=== PATIENT | female | born 1970 | race Caucasian/White ===

== ENCOUNTER 2019-02-04 16:39 | Inpatient (IN) | payer MEDICAID ==
[~2019-02-04] VITALS: Ht 172.7 cm; Wt 176.1 kg
[~2019-02-04 16:39] MED LIST: CYCL-1 PO; FLUC200T PO; HYDR-4383 PO; METO50TA17 PO; PHEN-786 PO
[2019-02-04 17:17] LABS: BASOPHILS # (AUTO) 0.1 X10'3 (0-0.2); BASOPHILS % (AUTO) 0.9 % (0-1); EOSINOPHILS # (AUTO) 0.1 X10'3 (0-0.9); EOSINOPHILS % (AUTO) 1.2 % (0-6); HEMATOCRIT 42.6 % (35.0-45.0); HEMOGLOBIN 14.2 g/dl (12.0-16.0); LYMPHOCYTES # (AUTO) 2.4 X10'3 (1.1-4.8); LYMPHOCYTES % (AUTO) 30.6 % (21-51); MEAN CORPUSCULAR HEMOGLOBIN 29.5 PG (27.0-31.0); MEAN CORPUSCULAR HGB CONC 33.3 g/dL (33.0-36.5); MEAN CORPUSCULAR VOLUME 88.4 FL (78-98); MEAN PLATELET VOLUME 8.2 FL (7.4-10.4); MONOCYTES # (AUTO) 0.5 X10'3 (0-0.9); MONOCYTES % (AUTO) 6.2 % (2-12); NEUTROPHILS # (AUTO) 4.8 X10'3 (1.8-7.7); NEUTROPHILS % (AUTO) 61.1 % (42-75); PLATELET COUNT 322 X10'3 (140-440); RED BLOOD COUNT 4.82 X10'6 (4.20-5.60); RED CELL DISTRIBUTION WIDTH 12.9 % (11.5-14.5); WHITE BLOOD COUNT 7.8 X10'3 (4.5-11.0)
[2019-02-04 17:33] LABS: ALANINE AMINOTRANSFERASE 18 U/L (12-78); ALBUMIN 3.5 G/DL (3.4-5.0); ALBUMIN/GLOBULIN RATIO 0.9 (1.1-1.5); ALKALINE PHOSPHATASE 101 IU/L (46-116); ANION GAP 8 (8-16); ASPARTATE AMINO TRANSFERASE 14 U/L (10-37); BILIRUBIN,TOTAL 0.3 MG/DL (0.1-1.0); BLOOD UREA NITROGEN 12 MG/DL (7-18); BUN/CREATININE RATIO 14.1 (6.6-38.0); CALCIUM 8.7 MG/DL (8.5-10.1); CHLORIDE 101 MMOL/L (99-107); CREATININE 0.85 MG/DL (0.40-0.90); GLUCOSE 102 MG/DL (70-104); POTASSIUM 4.4 MMOL/L (3.5-5.1); SODIUM 136 MMOL/L (135-145); TOTAL CARBON DIOXIDE 26.6 MMOL/L (24-32); TOTAL PROTEIN 7.5 G/DL (6.4-8.2); eGFR 71 ML/MIN
[2019-02-04 17:40] LABS: PARTIAL THROMBOPLASTIN TIME 29 SECONDS (22-32)
[2019-02-04] MEDS ORDERED: mag hydrox/Alum hydrox/simeth 30ml oral suspension PO PRN (18:20)
[2019-02-04] MEDS ORDERED: ondansetron/PF 4mg/2ml inj IV PRN (18:20)
[2019-02-04] MEDS ORDERED: heparin 10,000 units/1 ML INJ IV ONE (18:20)
[2019-02-04] MEDS ORDERED: acetaminophen 325mg tablet PO PRN ×2 (18:20)
[2019-02-04] MEDS ORDERED: heparin 10,000 units/1 ML INJ IV PRN (18:20)
[2019-02-04] MEDS ORDERED: magnesium hydroxide 30ml (MOM) UD suspension PO PRN (18:20)
[2019-02-04] MEDS ORDERED: nitroGLYCERIN 0.4mg SUBLingual tab SL PRN (18:20)
[2019-02-04] MEDS ORDERED: HYDROcodone/acetaminophen 10/325mg tab PO PRN (18:20)
[2019-02-04] MEDS ORDERED: morphine 2 MG/ML inj. syringe IV PRN (18:20)
[2019-02-04] MEDS ORDERED: ACYC-202 PO (18:47)
[2019-02-04] MEDS ORDERED: CETI10CA PO (18:51)
[2019-02-04] MEDS ORDERED: BROM2.5T22 PO (18:51)
[2019-02-04] MEDS ORDERED: ASPI-1265 PO (18:51)
[2019-02-04] MEDS ORDERED: AMIT-189 PO (18:51)
[2019-02-04] MEDS ORDERED: ADV50250 INH (19:01)
[2019-02-04] MEDS ORDERED: CHOL10002 PO (19:01)
[2019-02-04] MEDS ORDERED: ESTR2TAB PO (19:01)
[2019-02-04] MEDS ORDERED: FOLI0.4T2 PO (19:01)
[2019-02-04] MEDS ORDERED: MONT10TA24 PO (19:01)
[2019-02-04] MEDS ORDERED: VALS160T30 PO (19:01)
[2019-02-04] MEDS ORDERED: OXCA600T9 PO (19:01)
[2019-02-04] MEDS ORDERED: OMEP40CA13 PO (19:01)
[2019-02-04] MEDS ORDERED: FLUT16SP2 BOTHNARES (19:11)
[2019-02-04] MEDS ORDERED: ALBU0.63 NEB (19:11)
[2019-02-04] MEDS ORDERED: ALBU6.7H9 INH (19:11)
[2019-02-04] MEDS ORDERED: COMPOUND (19:11)
[2019-02-04] MEDS: heparin 25,000 UNIT/250ml bag 250 ML IV SCH (19:25)
[2019-02-04] MEDS ORDERED: metoprolol tartrate 25mg tablet PO SCH (20:00)
[2019-02-04] MEDS: HYDROcodone/acetaminophen 5mg/325mg tablet PO PRN (21:41)
[2019-02-04 23:00] VITALS: BP 189/101
[2019-02-04] MEDS: nitroGLYCERIN 0.4mg/hour patch TD SCH (23:21)
[2019-02-05] VITALS (30 sets, daily range): BP systolic 143–214; BP diastolic 49–170
[2019-02-05] MEDS ORDERED: cyclobenzaprine 10mg tablet PO PRN
[2019-02-05] MEDS ORDERED: cloNIDine 0.1 mg tablet PO ONE (00:05)
[2019-02-05] MEDS ORDERED: albuterol 2.5 MG/3 ML nebule NEB PRN (01:55)
[2019-02-05] MEDS ORDERED: non-formulary drug (Albuterol Sulfate (Proventil Hfa) 2 PUFFS) INH SCH (02:00)
[2019-02-05 03:01] LABS: BASOPHILS # (AUTO) 0.1 X10'3 (0-0.2); EOSINOPHILS # (AUTO) 0.1 X10'3 (0-0.9); HEMATOCRIT 40.1 % (35.0-45.0); HEMOGLOBIN 13.7 g/dl (12.0-16.0); LYMPHOCYTES # (AUTO) 3.4 X10'3 (1.1-4.8); LYMPHOCYTES % (AUTO) 37.9 % (21-51); MEAN CORPUSCULAR VOLUME 88.2 FL (78-98); MEAN PLATELET VOLUME 8.4 FL (7.4-10.4); MONOCYTES # (AUTO) 0.6 X10'3 (0-0.9); MONOCYTES % (AUTO) 6.7 % (2-12); NEUTROPHILS # (AUTO) 4.8 X10'3 (1.8-7.7); NEUTROPHILS % (AUTO) 53.4 % (42-75); PLATELET COUNT 283 X10'3 (140-440); RED BLOOD COUNT 4.55 X10'6 (4.20-5.60); WHITE BLOOD COUNT 9.1 X10'3 (4.5-11.0)
[2019-02-05] MEDS: heparin 25,000 UNIT/250ml bag 250 ML IV SCH (03:35)
[2019-02-05] MEDS: HYDROcodone/acetaminophen 5mg/325mg tablet PO PRN (05:31)
[2019-02-05 05:51] LABS: ALBUMIN 3.3 G/DL (3.4-5.0); ANION GAP 9 (8-16); BLOOD UREA NITROGEN 9 MG/DL (7-18); BUN/CREATININE RATIO 13.8 (6.6-38.0); CALCIUM 8.6 MG/DL (8.5-10.1); CHLORIDE 103 MMOL/L (99-107); CHOL/HDL RATIO 4.7 (0.00-4.99); CHOLESTEROL 239 MG/DL (0-200); CREATININE 0.65 MG/DL (0.40-0.90); GLUCOSE 107 MG/DL (70-104); HDL CHOLESTEROL 51 MG/DL (35-60); LDL CHOLESTEROL 139 MG/DL (50-100); POTASSIUM 3.6 MMOL/L (3.5-5.1); SODIUM 137 MMOL/L (135-145); TOTAL CARBON DIOXIDE 24.7 MMOL/L (24-32); TRIGLYCERIDES 214 MG/DL (20-135); eGFR > 90 ML/MIN
--- NOTE | 2019-02-05 06:24 | NUR ---
CALLED DR. SERRANO ABOUT HIGH BP 193/94 RECEIVED ORDER FOR 0.2MG CLONIDINE PO ONCE NOW.
[2019-02-05] MEDS ORDERED: nystatin 15 GM powder TP PRN (06:45)
[2019-02-05] MEDS: cloNIDine 0.1 mg tablet PO SCH (06:47)
--- NOTE | 2019-02-05 07:44 | NUR ---
PAGER ID: [phone] MESSAGE: [phone]. Valencia Selby. Wanted to ensure you were aware latest trop 10.16. currently on heparin gtt at 1700 and having active CP. unrelieved by nitro patch. morphine given. EKG done. BP 180/92 please advise. Cesar ASCENCIO ext [phone]
[2019-02-05] MEDS: vitamin D (cholecalciferol) 1,000 unit tablet PO SCH (07:46)
[2019-02-05] MEDS: fluticasone nasal spray 16GM bottle NS SCH (07:46)
[2019-02-05] MEDS: pantoprazole 40mg Tablet.DR PO SCH (07:47)
[2019-02-05] MEDS: folic acid 0.4mg tablet PO SCH (07:47)
[2019-02-05] MEDS: oxcarbazepine 150mg tablet PO SCH ×2 (07:47→19:41)
[2019-02-05] MEDS: estradiol 1mg tablet PO SCH (07:48)
[2019-02-05] MEDS: aspirin 81mg tablet.DR PO SCH (07:48)
[2019-02-05] MEDS ORDERED: nitroGLYCERIN-Tridil 50MG/D5W 250 ML IV SCH ×2 (07:55)
[2019-02-05] MEDS ORDERED: atorvastatin 10mg tablet PO SCH (08:00)
[2019-02-05] MEDS: Fluticasone/Salmeterol (Advair 250-50 Diskus) IH SCH ×2 (08:00→22:55)
[2019-02-05] MEDS: VALSARTAN 320 MG PO SCH (08:00)
[2019-02-05] MEDS ORDERED: aspirin 81mg tab.chew PO SCH (08:00)
--- NOTE | 2019-02-05 08:20 | NUR ---
PAGED PICC LINE NURSE "IF YOU CAN PLEASE HELP WITH IV OR EXTENDED IN ROOM 309, PT ON 2 DRIPS AND REQUESTED THANK YOU, PANCHO MYLES [phone]"
[2019-02-05] MEDS ORDERED: tirofiban 5mg in NS 100mL 100 ML IV SCH (08:30)
--- NOTE | 2019-02-05 09:45 | NUR ---
PAGER ID: [phone] MESSAGE: rm [phone] Valencia Selby. just to clarify, would you and Dr. Balderas like all three gtts running. Heparin, aggrastat and nitro? thank you Cesar ASCENCIO ext [phone]
[2019-02-05] MEDS ORDERED: tirofiban 12.5mg in NS 250mL 250 ML IV SCH (10:15)
[2019-02-05] MEDS: LORazepam 1 MG tablet PO PRN ×2 (11:03→18:44)
[2019-02-05] MEDS ORDERED: nitroGLYCERIN-Tridil 50MG/D5W 250 ML IV ONE (14:03)
[2019-02-05] MEDS ORDERED: midazolam 2 mg/2 ml injection ONE ×2 (14:03→15:13)
[2019-02-05] MEDS ORDERED: verapamil 2.5 mg/ml inj IV ONE (14:03)
[2019-02-05] MEDS ORDERED: fentaNYL/PF 50MCG/1 ML 2ML syringe ONE (14:03)
[2019-02-05] MEDS ORDERED: iohexol 350MG/ML 100ml bottle IV ONE (14:04)
[2019-02-05] MEDS ORDERED: LIDOcaine 1% (10mg/ml)w/preservative injection 20ml MDV ONE (14:04)
[2019-02-05] MEDS ORDERED: heparin 1,000unit/ml 10ml vial 10 ML ONE ×2 (14:04→15:08)
--- NOTE | 2019-02-05 14:35 | NUR ---
pt to laboratory technical specialist.
[2019-02-05] MEDS ORDERED: iohexol 350 MG/ML 50ML vial IV ONE (15:06)
[2019-02-05] MEDS ORDERED: ticagrelor 90mg tablet ONE (15:22)
--- NOTE | 2019-02-05 16:00 | NUR ---
patient hypertensive post cath paged Dr. Rico "ACCE pt [place] 309 came back from denture laboratory technician. Very hypertensive throughout the procedure. Current at 191/81, 76. Nitro Gtt was d/c by Dr. Balderas. Do you want to prescribe any PRN BP meds? Thx. Ex [id number]"
[2019-02-05] MEDS ORDERED: ondansetron/PF 4mg/2ml inj IV PRN (16:20)
[2019-02-05] MEDS ORDERED: hydrALAZINE 20mg/ml inj. IV ONE (16:20)
[2019-02-05] MEDS ORDERED: normal saline 1000ml 1,000 ML IV SCH (16:25)
[2019-02-05] MEDS ORDERED: OXAZEpam 15mg capsule PO PRN (16:25)
[2019-02-05] MEDS ORDERED: proCHLORperazine 10 MG/2 ml inj IV PRN (16:25)
--- NOTE | 2019-02-05 16:55 | NUR ---
3 CC OF AIR RELEASED FROM RADIAL COMPRESSION
--- NOTE | 2019-02-05 17:10 | NUR ---
DR. HOGUE CALLED BACK TO GIVE ORDER FOR HYDRALAZINE IV 20MG ONCE. INSTRUCTED TO CONTACT HOSPITALIST FOR BP ISSUES.
[2019-02-05] MEDS: morphine 2 MG/ML inj. syringe IV PRN (17:22)
--- NOTE | 2019-02-05 17:35 | NUR ---
DR. RUBIO PRESENT AT BEDSIDE AND AWARE OF ELEVATED BP
--- NOTE | 2019-02-05 17:53 | NUR ---
Paged Dr. Huerta: ACCE pt in 309 [facility], BP is 204/114. Gave Hydralyzine 20mg, gave morphine 2 mg for pain. Can you prescribe PRN BP meds? Can pt also be straight cathed for urinary retention per pt request? Thx
--- NOTE | 2019-02-05 18:13 | NUR ---
Problems reprioritized. Patient report given, questions answered & plan of care reviewed with Demi ASCENCIO.
--- NOTE | 2019-02-05 18:41 | NUR ---
PAGER ID: [phone] MESSAGE: 309 pt Bal on review BP has been trending high, currently 190/70 with no PRN anti-HTN. Scheduled BP meds present. Please advise. Thank you - Leslee [phone]
[2019-02-05] MEDS ORDERED: hydrALAZINE 20mg/ml inj. IV PRN (18:45)
[2019-02-05] MEDS: ticagrelor 90mg tablet PO SCH (19:41)
[2019-02-05] MEDS ORDERED: montelukast 10mg tablet PO SCH (21:00)
[2019-02-05] MEDS ORDERED: amitriptyline 10mg tablet PO SCH (21:00)
[2019-02-05] MEDS: diltiazem 30mg tablet PO SCH (21:45)
[2019-02-06] MEDS: morphine 2 MG/ML inj. syringe IV PRN (00:10)
[2019-02-06] MEDS: nitroGLYCERIN 0.4mg/hour patch TD SCH (00:15)
[2019-02-06 00:30] VITALS: BP 176/44
[2019-02-06 02:00] VITALS: BP 152/55
[2019-02-06] MEDS: diltiazem 30mg tablet PO SCH ×3 (02:42→15:04)
[2019-02-06 06:00] VITALS: BP 144/60
--- NOTE | 2019-02-06 06:00 | NUR ---
Patient in room MED 309. I have received report from SONU Simms and had the opportunity to ask questions and assume patient care.
--- NOTE | 2019-02-06 06:22 | NUR ---
Problems reprioritized. Patient report given, questions answered & plan of care reviewed with Art RN.
[2019-02-06 06:23] LABS: BASOPHILS % (AUTO) 0.4 % (0-1); EOSINOPHILS % (AUTO) 0.3 % (0-6); HEMOGLOBIN 13.3 g/dl (12.0-16.0); LYMPHOCYTES # (AUTO) 1.3 X10'3 (1.1-4.8); LYMPHOCYTES % (AUTO) 11.6 % (21-51); MEAN CORPUSCULAR HEMOGLOBIN 29.9 PG (27.0-31.0); MEAN CORPUSCULAR HGB CONC 33.9 g/dL (33.0-36.5); MEAN CORPUSCULAR VOLUME 88.1 FL (78-98); MEAN PLATELET VOLUME 8.1 FL (7.4-10.4); MONOCYTES # (AUTO) 0.7 X10'3 (0-0.9); MONOCYTES % (AUTO) 6.2 % (2-12); NEUTROPHILS # (AUTO) 9.2 X10'3 (1.8-7.7); NEUTROPHILS % (AUTO) 81.5 % (42-75); PLATELET COUNT 297 X10'3 (140-440); RED BLOOD COUNT 4.43 X10'6 (4.20-5.60); RED CELL DISTRIBUTION WIDTH 13.1 % (11.5-14.5); WHITE BLOOD COUNT 11.3 X10'3 (4.5-11.0)
[2019-02-06] MEDS: cloNIDine 0.1 mg tablet PO SCH (06:25)
[2019-02-06 06:34] LABS: ALBUMIN 3.1 G/DL (3.4-5.0); ANION GAP 10 (8-16); BLOOD UREA NITROGEN 9 MG/DL (7-18); CALCIUM 8.9 MG/DL (8.5-10.1); CHLORIDE 102 MMOL/L (99-107); CREATININE 0.82 MG/DL (0.40-0.90); GLUCOSE 130 MG/DL (70-104); POTASSIUM 3.9 MMOL/L (3.5-5.1); SODIUM 137 MMOL/L (135-145); TOTAL CARBON DIOXIDE 25.3 MMOL/L (24-32); eGFR 74 ML/MIN
--- NOTE | 2019-02-06 06:47 | NUR ---
PAGER ID: [phone] MESSAGE: GOOD MORNING DR. KIRK BERTRAND 309 HAS AN ORDER FOR CATAPRES TAKE APPREARS TO BE A 1 TIME ORDER. IS IT SUPPOSED TO BE A ROUTINE MED? SONU GRACIA EXT [id number]
[2019-02-06] MEDS: pantoprazole 40mg Tablet.DR PO SCH (07:51)
[2019-02-06] MEDS: aspirin 81mg tablet.DR PO SCH (07:51)
[2019-02-06] MEDS: vitamin D (cholecalciferol) 1,000 unit tablet PO SCH (07:51)
[2019-02-06] MEDS: folic acid 0.4mg tablet PO SCH (07:52)
[2019-02-06] MEDS: estradiol 1mg tablet PO SCH (07:52)
[2019-02-06] MEDS: ticagrelor 90mg tablet PO SCH (07:52)
[2019-02-06] MEDS: oxcarbazepine 150mg tablet PO SCH (07:53)
[2019-02-06] MEDS: VALSARTAN 320 MG PO SCH (07:54)
[2019-02-06] MEDS: fluticasone nasal spray 16GM bottle NS SCH (07:54)
[2019-02-06] MEDS ORDERED: atorvastatin 20mg tablet PO SCH (08:00)
[2019-02-06] MEDS: Fluticasone/Salmeterol (Advair 250-50 Diskus) IH SCH (08:00)
[2019-02-06 08:07] LABS: MAGNESIUM 1.8 MG/DL (1.5-2.4)
--- NOTE | 2019-02-06 10:10 | NUR ---
Orientee documentation: I have reviewed and agree with all interventions, assessments performed and documented by SONU Celis.
[2019-02-06] MEDS: HYDROcodone/acetaminophen 5mg/325mg tablet PO PRN (10:19)
--- NOTE | 2019-02-06 10:56 | NUR ---
PAGER ID: [phone] MESSAGE: Good morning DrCole Ugaldewer in 308 has a blood pressure of 74/49 with a map of 55. He is complaining of dizziness (but this is not new). In the past he has used midodrine.. Is this something we should consider? Art, [phone] Addendum: 02/06/19 at 1056 by Vineet Lua III, RN Previous note is for a different pt
[2019-02-06 11:00] VITALS: BP 156/60
--- NOTE | 2019-02-06 13:41 | NUR ---
Orientee documentation: I have reviewed and agree with all interventions, assessments performed and documented by SONU Celis.
--- NOTE | 2019-02-06 13:53 | NUR ---
Problems reprioritized. Patient report given, questions answered & plan of care reviewed with SONU ONEAL.
[2019-02-06 14:30] VITALS: BP 136/89
[2019-02-06 15:00] VITALS: BP 132/85
[2019-02-06] MEDS ORDERED: NITR0.4T51 SL (15:32)
[2019-02-06] MEDS ORDERED: DILT60TA4 PO (15:32)
[2019-02-06] MEDS ORDERED: ATOR80TA PO (15:32)
[2019-02-06] MEDS ORDERED: TICA90TA PO (15:37)
--- NOTE | 2019-02-06 17:45 | NUR ---
Pt discharged. IV and tele DC'd. Educated on medications, follow-up and NSTEMI. Stable per MD for DC.
[2019-02-06] MEDS ORDERED: cetirizine 10mg tablet PO SCH (21:00)
== END 2019-02-06 17:45 | disposition home or self-care (01) | DRG 174 ==
LOC: ER 16:39 → MED 3N 20:42 → CMPBEDREQ 21:13 → PCU 3S 02-06 15:20
PROVIDERS: ADMIT Internal Medicine; ATTEND Family Medicine
PROC: 027034Z Dilation of Coronary Artery, One Artery with Drug-eluting Intraluminal Device, Percutaneous Approach (ICD-10-PCS; principal; 2019-02-05)
DX: I21.4 Non-ST elevation (NSTEMI) myocardial infarction (principal); E66.01 Morbid (severe) obesity due to excess calories; G47.00 Insomnia, unspecified; J45.909 Unspecified asthma, uncomplicated; K21.9 Gastro-esophageal reflux disease without esophagitis; I25.10 Atherosclerotic heart disease of native coronary artery without angina pectoris; E28.2 Polycystic ovarian syndrome; G89.29 Other chronic pain; E78.5 Hyperlipidemia, unspecified; I10 Essential (primary) hypertension; M54.9 Dorsalgia, unspecified; Z90.710 Acquired absence of both cervix and uterus; Z90.49 Acquired absence of other specified parts of digestive tract; Z88.8 Allergy status to other drugs, medicaments and biological substances; Z82.49 Family history of ischemic heart disease and other diseases of the circulatory system; Z68.43 Body mass index [BMI] 50.0-59.9, adult; Z85.3 Personal history of malignant neoplasm of breast; Z87.440 Personal history of urinary (tract) infections
CPT/HCPCS: 36415; 71045; 76937; 80048; 80053; 80061; 83036; 83735; 83880; 84484; 85025; 85610; 85730; 87081; 93005; 93306; 93454; 94640; 94760; 96374; 99152; 99153; 99285; A4620; C1769; C1874; C1894; C9600; G0378; J0360; J1644; J2001; J2250; J2270; J2405; J3010; J3246; J3490; J7030; Q9967

== ENCOUNTER 2019-02-09 15:01 | Emergency (ER) | payer MEDICAID ==
[~2019-02-09] VITALS: Ht 172.7 cm; Wt 177.3 kg
[~2019-02-09 15:01] MED LIST changes: +ACYC-202 PO; +ADV50250 INH; +ALBU0.63 NEB; +ALBU6.7H9 INH; +AMIT-189 PO; +ASPI-1265 PO; +ATOR80TA PO; +BROM2.5T22 PO; +CETI10CA PO; +CHOL10002 PO; +COMPOUND; +DILT60TA4 PO; +ESTR2TAB PO; -FLUC200T PO; +FLUT16SP2 BOTHNARES; +FOLI0.4T2 PO; -HYDR-4383 PO; -METO50TA17 PO; +MONT10TA24 PO; +NITR0.4T51 SL; +OMEP40CA13 PO; +OXCA600T9 PO; -PHEN-786 PO; +TICA90TA PO; +VALS160T30 PO
[2019-02-09 16:18] LABS: BASOPHILS % (AUTO) 0.4 % (0-1); EOSINOPHILS # (AUTO) 0.2 X10'3 (0-0.9); EOSINOPHILS % (AUTO) 1.9 % (0-6); HEMATOCRIT 41.1 % (35.0-45.0); HEMOGLOBIN 13.9 g/dl (12.0-16.0); LYMPHOCYTES # (AUTO) 2.2 X10'3 (1.1-4.8); LYMPHOCYTES % (AUTO) 23.6 % (21-51); MEAN CORPUSCULAR HEMOGLOBIN 29.8 PG (27.0-31.0); MEAN CORPUSCULAR HGB CONC 33.7 g/dL (33.0-36.5); MEAN CORPUSCULAR VOLUME 88.3 FL (78-98); MONOCYTES # (AUTO) 0.7 X10'3 (0-0.9); MONOCYTES % (AUTO) 7.8 % (2-12); NEUTROPHILS # (AUTO) 6.2 X10'3 (1.8-7.7); NEUTROPHILS % (AUTO) 66.3 % (42-75); PLATELET COUNT 347 X10'3 (140-440); RED BLOOD COUNT 4.65 X10'6 (4.20-5.60); RED CELL DISTRIBUTION WIDTH 12.8 % (11.5-14.5); WHITE BLOOD COUNT 9.3 X10'3 (4.5-11.0)
[2019-02-09] MEDS ORDERED: iohexol 350MG/ML 100ml bottle IV ONE (16:31)
[2019-02-09 16:35] LABS: ALANINE AMINOTRANSFERASE 13 U/L (12-78); ALBUMIN 3.2 G/DL (3.4-5.0); ALBUMIN/GLOBULIN RATIO 0.7 (1.1-1.5); ALKALINE PHOSPHATASE 102 IU/L (46-116); ANION GAP 10 (8-16); ASPARTATE AMINO TRANSFERASE 12 U/L (10-37); BILIRUBIN,TOTAL 0.5 MG/DL (0.1-1.0); BLOOD UREA NITROGEN 12 MG/DL (7-18); CALCIUM 8.9 MG/DL (8.5-10.1); CHLORIDE 98 MMOL/L (99-107); CREATININE 0.63 MG/DL (0.40-0.90); GLUCOSE 93 MG/DL (70-104); POTASSIUM 4.2 MMOL/L (3.5-5.1); SODIUM 130 MMOL/L (135-145); TOTAL CARBON DIOXIDE 22.4 MMOL/L (24-32); TOTAL PROTEIN 7.6 G/DL (6.4-8.2); eGFR > 90 ML/MIN
[2019-02-09 16:42] LABS: MAGNESIUM 1.7 MG/DL (1.5-2.4)
--- NOTE | 2019-02-09 16:45 | NUR ---
lab called to inform pt troponin 1.11 ,notified dr lawrence regarding pt troponin as per md its trending down from previous visit .no new orders.
--- NOTE | 2019-02-09 16:56 | NUR ---
BACK FROM CT SCAN
--- NOTE | 2019-02-09 17:10 | NUR ---
RHYTHM CHANGED NOTED. STAT EKG, INFORMED DR. KUMAR.
--- NOTE | 2019-02-09 19:13 | NUR ---
Patient resting comfortably in bed playing on her tablet with her at bedside. Denies CP or SOB while at rest. No requests at this time. She is updated on POC.
[2019-02-09] MEDS ORDERED: acetaminophen 325mg tablet PO ONE (20:40)
[2019-02-09 21:11] VITALS: BP 180/96
== END 2019-02-09 21:15 | disposition home or self-care (01) ==
LOC: ER 15:01
DX: R06.02 Shortness of breath (principal); T50.995A Adverse effect of other drugs, medicaments and biological substances, initial encounter; E66.01 Morbid (severe) obesity due to excess calories; I25.10 Atherosclerotic heart disease of native coronary artery without angina pectoris; E78.00 Pure hypercholesterolemia, unspecified; I10 Essential (primary) hypertension; I25.2 Old myocardial infarction; J45.909 Unspecified asthma, uncomplicated; M19.90 Unspecified osteoarthritis, unspecified site; G89.29 Other chronic pain; G62.9 Polyneuropathy, unspecified; Z90.49 Acquired absence of other specified parts of digestive tract; Z90.710 Acquired absence of both cervix and uterus; Z79.899 Other long term (current) drug therapy; Z79.82 Long term (current) use of aspirin; Z88.8 Allergy status to other drugs, medicaments and biological substances; Z88.1 Allergy status to other antibiotic agents; Z88.6 Allergy status to analgesic agent; E78.5 Hyperlipidemia, unspecified; Y92.89 Other specified places as the place of occurrence of the external cause
CPT/HCPCS: 36415; 71045; 71275; 80053; 83735; 83880; 84484; 85025; 93005; 99284; Q9967

== ENCOUNTER 2020-02-26 07:28 | Inpatient (IN) | payer MEDICAID ==
[~2020-02-26] VITALS: Ht 172.7 cm; Wt 174.0 kg
[~2020-02-26 07:28] MED LIST changes: -ATOR80TA PO; -BROM2.5T22 PO; +BROM2.5T5 PO; -MONT10TA24 PO; +MONT10TA26 PO
[2020-02-26] MEDS ORDERED: diltiazem 5mg/ml 5ml inj. IV ONE ×3 (08:00→08:35)
[2020-02-26] MEDS ORDERED: aspirin 81mg tab.chew PO ONE (08:10)
[2020-02-26] MEDS ORDERED: magnesium oxide 400mg tablet PO ONE (08:10)
[2020-02-26] MEDS ORDERED: diltiazem 5mg/ml 5ml inj. IV STA (08:34)
[2020-02-26] MEDS ORDERED: diltiazem-D5W 125mg/125ml 125 ML IV PRN (08:34)
--- NOTE | 2020-02-26 08:35 | NUR ---
reported to Dr. Camilo,cardizem 25 mg given hr 140's,obtained verbal order vorfr cardizem ivp 30mg now.
--- NOTE | 2020-02-26 08:39 | NUR ---
order changed,per Dr. perez just give 20mg cardizem.
[2020-02-26 08:46] LABS: BASOPHILS # (AUTO) 0.1 X10'3 (0-0.2); BASOPHILS % (AUTO) 0.8 % (0-1); EOSINOPHILS # (AUTO) 0.2 X10'3 (0-0.9); EOSINOPHILS % (AUTO) 1.7 % (0-6); HEMOGLOBIN 15.6 g/dl (12.0-16.0); LYMPHOCYTES # (AUTO) 2.1 X10'3 (1.1-4.8); LYMPHOCYTES % (AUTO) 23.2 % (21-51); MEAN CORPUSCULAR HEMOGLOBIN 30.5 PG (27.0-31.0); MEAN CORPUSCULAR VOLUME 89.7 FL (78-98); MEAN PLATELET VOLUME 8.1 FL (7.4-10.4); MONOCYTES # (AUTO) 0.6 X10'3 (0-0.9); MONOCYTES % (AUTO) 6.8 % (2-12); NEUTROPHILS # (AUTO) 6.2 X10'3 (1.8-7.7); NEUTROPHILS % (AUTO) 67.5 % (42-75); PLATELET COUNT 360 X10'3 (140-440); RED BLOOD COUNT 5.12 X10'6 (4.20-5.60); RED CELL DISTRIBUTION WIDTH 13.3 % (11.5-14.5); WHITE BLOOD COUNT 9.1 X10'3 (4.5-11.0)
[2020-02-26] MEDS ORDERED: diltiazem-NS 100mg/100ml 100 ML IV PRN (08:46)
[2020-02-26 08:59] LABS: ALANINE AMINOTRANSFERASE 15 U/L (12-78); ALBUMIN 3.6 G/DL (3.4-5.0); ALBUMIN/GLOBULIN RATIO 0.8 (1.1-1.5); ALKALINE PHOSPHATASE 127 IU/L (46-116); ANION GAP 10 (8-16); ASPARTATE AMINO TRANSFERASE 15 U/L (10-37); BILIRUBIN,TOTAL 0.3 MG/DL (0.1-1.0); BLOOD UREA NITROGEN 9 MG/DL (7-18); BUN/CREATININE RATIO 11.5 (6.6-38.0); CALCIUM 8.9 MG/DL (8.5-10.1); CHLORIDE 101 MMOL/L (99-107); CREATININE 0.78 MG/DL (0.40-0.90); GLUCOSE 128 MG/DL (70-104); SODIUM 137 MMOL/L (135-145); TOTAL CARBON DIOXIDE 25.9 MMOL/L (24-32); TOTAL PROTEIN 8.2 G/DL (6.4-8.2); eGFR 78 ML/MIN
[2020-02-26 09:06] LABS: MAGNESIUM 1.7 MG/DL (1.5-2.4)
--- NOTE | 2020-02-26 09:30 | NUR ---
patient placed in gown,beddings changed.Patient unable to control urine,reports this is something new today,chris Newton aware,ordered romero cath but received a verbal to place a wick instead of romero cath.
--- NOTE | 2020-02-26 09:31 | NUR ---
repeat ekg,given to Dr. perez.On cardizem drip 5mg/hr.
--- NOTE | 2020-02-26 09:31 | NUR ---
wick placed.patient tolerated well.
[2020-02-26 10:03] LABS: PARTIAL THROMBOPLASTIN TIME 30 SECONDS (22-32)
[2020-02-26] MEDS ORDERED: heparin 25,000 UNIT/250ml bag 250 ML IV SCH ×2 (10:08→10:21)
[2020-02-26] MEDS ORDERED: clopidogrel 75mg tablet PO ONE (10:10)
[2020-02-26] MEDS ORDERED: heparin 10,000 units/1 ML INJ IV ONE ×3 (10:10→10:25)
[2020-02-26] MEDS ORDERED: heparin 10,000 units/1 ML INJ IV PRN ×2 (10:20→10:25)
[2020-02-26] MEDS ORDERED: ondansetron/PF 4mg/2ml inj IV PRN (10:25)
[2020-02-26] MEDS ORDERED: morphine 2 MG/ML inj. syringe IV PRN ×2 (10:25)
[2020-02-26] MEDS ORDERED: mag hydrox/Alum hydrox/simeth 30ml oral suspension PO PRN (10:25)
[2020-02-26] MEDS ORDERED: nitroGLYCERIN 0.4mg SUBLingual tab SL PRN (10:25)
[2020-02-26] MEDS ORDERED: magnesium hydroxide 30ml (MOM) UD suspension PO PRN (10:25)
[2020-02-26] MEDS ORDERED: acetaminophen 325mg tablet PO PRN (10:25)
[2020-02-26 10:41] LABS: HEMOGLOBIN A1C 5.5 % (4.5-6.2)
--- NOTE | 2020-02-26 10:59 | NUR ---
Patient in room ED 4. I have received report from [facility] [employer] POLISHER and had the opportunity to ask questions and assume patient care.
[2020-02-26 11:00] LABS: BASOPHILS % (AUTO) 0.5 % (0-1); EOSINOPHILS % (AUTO) 0.4 % (0-6); HEMATOCRIT 43.8 % (35.0-45.0); HEMOGLOBIN 14.7 g/dl (12.0-16.0); LYMPHOCYTES # (AUTO) 1.5 X10'3 (1.1-4.8); LYMPHOCYTES % (AUTO) 17.1 % (21-51); MEAN CORPUSCULAR HEMOGLOBIN 30.2 PG (27.0-31.0); MEAN CORPUSCULAR HGB CONC 33.6 g/dL (33.0-36.5); MEAN CORPUSCULAR VOLUME 89.9 FL (78-98); MEAN PLATELET VOLUME 8.3 FL (7.4-10.4); MONOCYTES # (AUTO) 0.3 X10'3 (0-0.9); MONOCYTES % (AUTO) 3.8 % (2-12); NEUTROPHILS # (AUTO) 6.9 X10'3 (1.8-7.7); NEUTROPHILS % (AUTO) 78.2 % (42-75); PLATELET COUNT 339 X10'3 (140-440); RED BLOOD COUNT 4.88 X10'6 (4.20-5.60); WHITE BLOOD COUNT 8.8 X10'3 (4.5-11.0)
[2020-02-26] MEDS ORDERED: CHOL10006 PO (11:04)
[2020-02-26] MEDS ORDERED: ATOR-2 PO (11:04)
[2020-02-26] MEDS ORDERED: CYCL-394 PO (11:04)
[2020-02-26] MEDS ORDERED: NITR0.4T48 SL (11:04)
[2020-02-26] MEDS ORDERED: ESTR2TAB6 PO (11:04)
[2020-02-26] MEDS ORDERED: LANS15CA18 PO (11:04)
[2020-02-26] MEDS ORDERED: ALBU8.5H8 INH (11:04)
[2020-02-26] MEDS ORDERED: AMIT10TA6 PO (11:04)
[2020-02-26] MEDS ORDERED: CLOP75TA35 PO (11:04)
[2020-02-26] MEDS ORDERED: FLUT15.87 IH (11:04)
[2020-02-26] MEDS ORDERED: CETI10TA14 PO (11:04)
[2020-02-26] MEDS ORDERED: FOLI0.8C PO (11:04)
[2020-02-26] MEDS ORDERED: FLUT1BLS10 PO (11:04)
[2020-02-26] MEDS ORDERED: DILT90TA2 PO (11:04)
[2020-02-26] MEDS ORDERED: ASPI-1397 PO (11:04)
[2020-02-26] MEDS ORDERED: MONT10TA21 PO (11:04)
[2020-02-26] MEDS ORDERED: OXCA600T9 PO (11:04)
[2020-02-26] MEDS ORDERED: VALS80TA32 PO (11:04)
--- NOTE | 2020-02-26 11:15 | NUR ---
Patient arrived to room 3012B. Patient ariived via gurney and was transported to bed. Patient orientated to room and equipment.VS: BP: 159/88 HR:84, O2: 98%RA, RR:18, Pain 3-4/10, Patient on mobile 64, MRSA complete. Wick applied. Cardiizem 5mg/hr, Heparin drip 1000 units. Will continue to monitor.
[2020-02-26 12:00] VITALS: BP 159/88
--- NOTE | 2020-02-26 12:01 | NUR ---
Paged Dr. Abbott Re: Valencia Selby Rm 6993 B. Pt is in sinus rhythm, HR 80's Do you still want Cardizem Drip? Also pt is asking for pain medication? Please Advise, Katarzyna RN [phone]
--- NOTE | 2020-02-26 12:03 | NUR ---
Dr. Abbott called in regards to page. New orders to stop Cardizem Drip, Bevier 5 and Bevier 10 for pain as stated. is aware patient is in sinus rhythm and hr 80's. Will continue to monitor.
[2020-02-26] MEDS ORDERED: HYDROcodone/acetaminophen 5mg/325mg tablet PO PRN (12:05)
[2020-02-26] MEDS: FLUTICASONE PROPION IH SCH ×2 (12:50→20:00)
[2020-02-26] MEDS: SALMETEROL IH SCH ×2 (12:50→20:00)
--- NOTE | 2020-02-26 13:00 | NUR ---
Pharmacy notified Nurse of patients own medication of Fluticasone propion/salmeterol was not available at pharmacy of hospital. Patient was advised and family (spouse, Patricia) was contacted. 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 Patients will be dropping off medication tomorrow if patient is to stay longer than tomorrow.
[2020-02-26 15:00] VITALS: BP 164/79
[2020-02-26] MEDS: HYDROcodone/acetaminophen 10/325mg tab PO PRN ×2 (15:06→23:05)
--- NOTE | 2020-02-26 15:26 | NUR ---
Paged Dr. Abbott Re: Valencia Selby RM 8968H. FYI pt troponins results are 1.25 from 0.31 from ER. Please advise if needed. Thank you, Katarzyna ASCENCIO [phone] Addendum: 02/26/20 at 1528 by Katarzyna Best RN Dr. Abbott will be consulting with netbackup engineer. Will continue to monitor.
--- NOTE | 2020-02-26 15:41 | NUR ---
Dr. Abbott called and stated that Dr. Balderas was advised and Dr will come consult patient. Until then patient is able to eat a Heart Healthy diet till further notice.
--- NOTE | 2020-02-26 17:11 | NUR ---
Called LAB to verify PTT draw at 1625, Lab will be getting results ERICK.
--- NOTE | 2020-02-26 17:40 | NUR ---
Lab was called by charge nurse to verify about pending PTT for protocol Heparin Drips. Lab was able to collect Blood but is pending results due to specimen on lab cart still. PTT times will be monitored and followed.
--- NOTE | 2020-02-26 18:35 | NUR ---
Patient PTT 33. Per protocol 60units/kg bolus and increase rate 4units making drip 1400units as of now. Cardiac PTT lab order for 02/27/20 at 0035, Abbi ASCENCIO is aware. Will continue to monitor.
--- NOTE | 2020-02-26 18:41 | NUR ---
Problems reprioritized. Patient report given, questions answered & plan of care reviewed with Abbi ASCENCIO.
[2020-02-26 19:00] VITALS: BP 164/81
[2020-02-26] MEDS ORDERED: cyclobenzaprine 10mg tablet PO SCH (21:00)
[2020-02-26] MEDS ORDERED: amitriptyline 10mg tablet PO SCH (21:00)
[2020-02-26] MEDS: oxcarbazepine 150mg tablet PO SCH (22:48)
[2020-02-26 23:00] VITALS: BP 202/77
[2020-02-26 23:01] VITALS: BP 177/83
[2020-02-27 03:00] VITALS: BP 172/81
[2020-02-27 05:57] LABS: BASOPHILS % (AUTO) 0.5 % (0-1); EOSINOPHILS # (AUTO) 0.2 X10'3 (0-0.9); HEMATOCRIT 42.3 % (35.0-45.0); HEMOGLOBIN 14.3 g/dl (12.0-16.0); LYMPHOCYTES # (AUTO) 3.3 X10'3 (1.1-4.8); LYMPHOCYTES % (AUTO) 36.5 % (21-51); MEAN CORPUSCULAR HEMOGLOBIN 30.4 PG (27.0-31.0); MEAN CORPUSCULAR HGB CONC 33.9 g/dL (33.0-36.5); MEAN CORPUSCULAR VOLUME 89.9 FL (78-98); MEAN PLATELET VOLUME 8.4 FL (7.4-10.4); MONOCYTES # (AUTO) 0.7 X10'3 (0-0.9); MONOCYTES % (AUTO) 7.3 % (2-12); NEUTROPHILS # (AUTO) 4.9 X10'3 (1.8-7.7); NEUTROPHILS % (AUTO) 53.7 % (42-75); PLATELET COUNT 288 X10'3 (140-440); RED CELL DISTRIBUTION WIDTH 13.7 % (11.5-14.5); WHITE BLOOD COUNT 9.1 X10'3 (4.5-11.0)
[2020-02-27 06:12] LABS: ALBUMIN 3.1 G/DL (3.4-5.0); ANION GAP 10 (8-16); BLOOD UREA NITROGEN 12 MG/DL (7-18); BUN/CREATININE RATIO 15.4 (6.6-38.0); CALCIUM 8.9 MG/DL (8.5-10.1); CHLORIDE 101 MMOL/L (99-107); CHOL/HDL RATIO 3.4 (0.00-4.99); CHOLESTEROL 191 MG/DL (0-200); CREATININE 0.78 MG/DL (0.40-0.90); GLUCOSE 108 MG/DL (70-104); HDL CHOLESTEROL 57 MG/DL (35-60); LDL CHOLESTEROL 89 MG/DL (50-100); POTASSIUM 3.7 MMOL/L (3.5-5.1); SODIUM 137 MMOL/L (135-145); TOTAL CARBON DIOXIDE 25.9 MMOL/L (24-32); TRIGLYCERIDES 262 MG/DL (20-135); eGFR 78 ML/MIN
--- NOTE | 2020-02-27 06:53 | NUR ---
Patient in room PCU 3012. I have received report from Abbi ASCENCIO and had the opportunity to ask questions and assume patient care.
[2020-02-27 07:00] VITALS: BP 194/77
[2020-02-27] MEDS ORDERED: pantoprazole 40mg Tablet.DR PO SCH (07:30)
[2020-02-27] MEDS ORDERED: folic acid 0.4mg tablet PO SCH (08:00)
[2020-02-27] MEDS ORDERED: cetirizine 10mg tablet PO SCH (08:00)
[2020-02-27] MEDS: SALMETEROL IH SCH (08:00)
[2020-02-27] MEDS ORDERED: estradiol 1mg tablet PO SCH (08:00)
[2020-02-27] MEDS ORDERED: clopidogrel 75mg tablet PO SCH (08:00)
[2020-02-27] MEDS ORDERED: fluticasone nasal spray 16GM bottle NS SCH (08:00)
[2020-02-27] MEDS ORDERED: losartan 50mg tablet PO SCH (08:00)
[2020-02-27] MEDS ORDERED: atorvastatin 20mg tablet PO SCH (08:00)
[2020-02-27] MEDS ORDERED: aspirin 81mg tablet.DR PO SCH ×2 (08:00)
[2020-02-27] MEDS ORDERED: vitamin D (cholecalciferol) 1,000 unit tablet PO SCH (08:00)
[2020-02-27] MEDS: FLUTICASONE PROPION IH SCH (08:00)
[2020-02-27] MEDS ORDERED: montelukast 10mg tablet PO SCH (08:00)
[2020-02-27] MEDS ORDERED: diltiazem CD 120mg capsule (once-daily) PO SCH (08:05)
[2020-02-27] MEDS ORDERED: apixaban 5mg tablet PO SCH (08:05)
[2020-02-27] MEDS: oxcarbazepine 150mg tablet PO SCH (08:06)
--- NOTE | 2020-02-27 09:00 | NUR ---
Patient is concerned about medication. Patient is concerned with allergies to medication. Medications were held and awaiting Dr. Abbott approval. Will continue to monitor.
--- NOTE | 2020-02-27 10:02 | NUR ---
Dr. Abbott at bedside with patient and Nurse. is still concerned for High BP 198/88, But is pleased with progress of patient. Home today id Blood pressure is sustained with Cardizem 240mg. New Orders: Discontinue Qty 1 of aspirin in AM, Discontinue Cozaar due to pt states she is unable to take due to allergy, Discontinue Plavix and start eliquis. No PT or diet consult at this time. Patient request [place] for home discharg planning as well for pain. Will continue to monitor. Addendum: 02/27/20 at 1007 by Katarzyna Best RN Since patient might be going home today, Home medications were not brought in until further notice.
[2020-02-27] MEDS ORDERED: APIX5TAB3 PO (10:07)
[2020-02-27] MEDS ORDERED: HYDR-4383 PO (10:07)
[2020-02-27] MEDS ORDERED: CARCD120C PO (10:07)
[2020-02-27 11:00] VITALS: BP 189/88
--- NOTE | 2020-02-27 12:02 | NUR ---
Paged Dr. Abbott Re: Valencia Selby RM 6961V. Pts BP still very high 202/89. Please advise. Thank you Katarzyna ASCENCIO [phone]
--- NOTE | 2020-02-27 12:05 | NUR ---
Dr. Abbott responded to page. New order A one time dose of Clonidine 0.2 Now. Will continue to monitor.
--- NOTE | 2020-02-27 12:11 | NUR ---
Patient stated, "Does not want to take a one time dose of Clonidine due to her track record of allergic reactions". Patient states she will take blood pressure medications when her get here and that med works and she will be ok. MD is aware is and OK to discharge. Paged Dr. Abbott Re: Valencia Selby RM 9231S. FYI Pt refuses clonidine and states she will take BP meds when ride is here. Thank you Katarzyna ASCENCIO [phone]
[2020-02-27] MEDS ORDERED: cloNIDine 0.1 mg tablet PO SCH (13:00)
--- NOTE | 2020-02-27 13:47 | NUR ---
BP was still High, Patient is set on that she will be taking her Valsartan as soon as her is here and that she will be fine. Will continue to monitor.
--- NOTE | 2020-02-27 14:50 | NUR ---
[facility] and Nurse. Patient was educated on all discharge instructions and medications. Tanesha asya E [place] was called to verify prescriptions, Patient was given a written script for Jose A per MD, Patient was also given Eliquis trial period brochure. All personal items were collected and sent with patient. [facility] in [facility] private vehicle with in vehicle waiting.
== END 2020-02-27 14:40 | disposition home or self-care (01) | DRG 201 ==
LOC: ER 07:29 → ED HOLD 10:21 → PCU 3S 11:28
PROVIDERS: ADMIT Internal Medicine; ATTEND Internal Medicine
DX: I48.0 Paroxysmal atrial fibrillation (principal); E66.01 Morbid (severe) obesity due to excess calories; E78.00 Pure hypercholesterolemia, unspecified; E78.5 Hyperlipidemia, unspecified; I10 Essential (primary) hypertension; I25.10 Atherosclerotic heart disease of native coronary artery without angina pectoris; G62.9 Polyneuropathy, unspecified; I21.A1 Myocardial infarction type 2; G89.29 Other chronic pain; M19.90 Unspecified osteoarthritis, unspecified site; M54.9 Dorsalgia, unspecified; J44.9 Chronic obstructive pulmonary disease, unspecified; Z68.43 Body mass index [BMI] 50.0-59.9, adult; Z79.01 Long term (current) use of anticoagulants; I25.2 Old myocardial infarction; Z79.82 Long term (current) use of aspirin; Z79.899 Other long term (current) drug therapy; Z90.49 Acquired absence of other specified parts of digestive tract; Z90.710 Acquired absence of both cervix and uterus; Z88.8 Allergy status to other drugs, medicaments and biological substances
CPT/HCPCS: 36415; 71045; 80048; 80053; 80061; 83036; 83735; 83880; 84484; 85025; 85610; 85730; 87081; 93005; 93306; 99291; G0378; J1644; J3490

== ENCOUNTER 2020-03-26 23:20 | Emergency (ER) | payer MEDICAID ==
[~2020-03-26] VITALS: Ht 172.7 cm; Wt 168.2 kg
[~2020-03-26 23:20] MED LIST changes: -ACYC-202 PO; -ADV50250 INH; -ALBU0.63 NEB; -ALBU6.7H9 INH; +ALBU8.5H8 INH; -AMIT-189 PO; +AMIT10TA6 PO; +APIX5TAB3 PO; -ASPI-1265 PO; +ASPI-1397 PO; +ATOR-2 PO; -BROM2.5T5 PO; +CARCD120C PO; -CETI10CA PO; +CETI10TA14 PO; -CHOL10002 PO; +CHOL10006 PO; -COMPOUND; -CYCL-1 PO; +CYCL-394 PO; -DILT60TA4 PO; -ESTR2TAB PO; +ESTR2TAB6 PO; +FLUT15.87 IH; -FLUT16SP2 BOTHNARES; +FLUT1BLS10 PO; -FOLI0.4T2 PO; +FOLI0.8C PO; +HYDR-4383 PO; +LANS15CA18 PO; +MONT10TA21 PO; -MONT10TA26 PO; +NITR0.4T48 SL; -NITR0.4T51 SL; -OMEP40CA13 PO; -TICA90TA PO; -VALS160T30 PO; +VALS80TA32 PO
[2020-03-26] MEDS ORDERED: LIDOcaine Viscous 15ml cup MM ONE (23:55)
[2020-03-26] MEDS ORDERED: mag hydrox/Alum hydrox/simeth 30ml oral suspension PO ONE (23:55)
[2020-03-26 23:56] LABS: BASOPHILS # (AUTO) 0.1 X10'3 (0-0.2); BASOPHILS % (AUTO) 0.8 % (0-1); EOSINOPHILS # (AUTO) 0.2 X10'3 (0-0.9); EOSINOPHILS % (AUTO) 1.9 % (0-6); HEMATOCRIT 40.3 % (35.0-45.0); HEMOGLOBIN 13.7 g/dl (12.0-16.0); LYMPHOCYTES % (AUTO) 23.7 % (21-51); MEAN CORPUSCULAR HEMOGLOBIN 30.4 PG (27.0-31.0); MEAN CORPUSCULAR VOLUME 89.5 FL (78-98); MEAN PLATELET VOLUME 8.6 FL (7.4-10.4); MONOCYTES # (AUTO) 0.8 X10'3 (0-0.9); MONOCYTES % (AUTO) 6.3 % (2-12); NEUTROPHILS # (AUTO) 8.5 X10'3 (1.8-7.7); NEUTROPHILS % (AUTO) 67.3 % (42-75); PLATELET COUNT 331 X10'3 (140-440); RED CELL DISTRIBUTION WIDTH 13.2 % (11.5-14.5); WHITE BLOOD COUNT 12.7 X10'3 (4.5-11.0)
[2020-03-27 00:04] LABS: ALANINE AMINOTRANSFERASE 17 U/L (12-78); ALBUMIN 3.4 G/DL (3.4-5.0); ALBUMIN/GLOBULIN RATIO 0.9 (1.1-1.5); ALKALINE PHOSPHATASE 123 IU/L (46-116); ANION GAP 8 (8-16); ASPARTATE AMINO TRANSFERASE 14 U/L (10-37); BILIRUBIN,TOTAL 0.4 MG/DL (0.1-1.0); BLOOD UREA NITROGEN 14 MG/DL (7-18); BUN/CREATININE RATIO 16.5 (6.6-38.0); CALCIUM 8.9 MG/DL (8.5-10.1); CHLORIDE 102 MMOL/L (99-107); CREATININE 0.85 MG/DL (0.40-0.90); GLUCOSE 103 MG/DL (70-104); SODIUM 135 MMOL/L (135-145); TOTAL PROTEIN 7.4 G/DL (6.4-8.2); eGFR 71 ML/MIN
[2020-03-27 00:16] LABS: MAGNESIUM 1.8 MG/DL (1.5-2.4)
--- NOTE | 2020-03-27 05:36 | NUR ---
Pt.'s spouse to provide transportation for pt. back home. He's coming from [place]. ETA 0700.
[2020-03-27 06:24] VITALS: BP 156/82
== END 2020-03-27 07:11 | disposition home or self-care (01) ==
LOC: ER 23:21
DX: R07.89 Other chest pain (principal); R11.0 Nausea; I48.91 Unspecified atrial fibrillation; I25.10 Atherosclerotic heart disease of native coronary artery without angina pectoris; E78.00 Pure hypercholesterolemia, unspecified; I10 Essential (primary) hypertension; I25.2 Old myocardial infarction; J45.909 Unspecified asthma, uncomplicated; M19.90 Unspecified osteoarthritis, unspecified site; G89.29 Other chronic pain; Z87.440 Personal history of urinary (tract) infections; Z90.49 Acquired absence of other specified parts of digestive tract; Z90.710 Acquired absence of both cervix and uterus; Z88.8 Allergy status to other drugs, medicaments and biological substances; Z88.1 Allergy status to other antibiotic agents; Z79.82 Long term (current) use of aspirin; Z79.899 Other long term (current) drug therapy
CPT/HCPCS: 36415; 71045; 80053; 83735; 83880; 84484; 85025; 93005; 99285

== ENCOUNTER 2021-05-25 12:48 | Day surgery (SDC) | payer MEDICAID ==
[~2021-05-25] VITALS: Ht 172.7 cm; Wt 198.0 kg
[~2021-05-25 12:48] MED LIST changes: +ALBU8.5H17 INH; -ALBU8.5H8 INH
[2021-05-25 13:02] VITALS: BP 116/80
[2021-05-25] MEDS ORDERED: MIDAZolam 1 MG/ML 5ML VIAL ONE (13:16)
[2021-05-25] MEDS ORDERED: fentaNYL/PF 50MCG/1 ML 2ML syringe ONE ×2 (13:16→14:21)
[2021-05-25] MEDS ORDERED: FAMO20TA8 PO (13:18)
[2021-05-25] MEDS ORDERED: OMEP40CA21 PO (13:18)
[2021-05-25] MEDS ORDERED: BROM2.5T18 PO (13:18)
[2021-05-25] MEDS ORDERED: FURO-150 PO (13:18)
[2021-05-25] MEDS ORDERED: ACYC-126 PO (13:18)
[2021-05-25] MEDS ORDERED: SOTA120T PO (13:18)
[2021-05-25] MEDS ORDERED: POTA10CA44 PO (13:18)
[2021-05-25 14:52] VITALS: BP 191/87
[2021-05-25 14:57] VITALS: BP 135/93
[2021-05-25 15:07] VITALS: BP 143/84
[2021-05-25 15:17] VITALS: BP 150/87
[2021-05-25 15:22] VITALS: BP 142/85
== END 2021-05-25 16:10 | disposition home or self-care (01) ==
LOC: GI LAB 12:48
PROVIDERS: ATTEND Internal Medicine Gastroenterology
DX: Z12.11 Encounter for screening for malignant neoplasm of colon (principal); D12.3 Benign neoplasm of transverse colon; D12.2 Benign neoplasm of ascending colon; K63.5 Polyp of colon; K62.1 Rectal polyp; I10 Essential (primary) hypertension; I25.2 Old myocardial infarction; I48.91 Unspecified atrial fibrillation; J45.909 Unspecified asthma, uncomplicated; E66.9 Obesity, unspecified; Z68.44 Body mass index [BMI] 60.0-69.9, adult; Z86.73 Personal history of transient ischemic attack (TIA), and cerebral infarction without residual deficits; Z88.1 Allergy status to other antibiotic agents; Z88.8 Allergy status to other drugs, medicaments and biological substances; Z91.018 Allergy to other foods
CPT/HCPCS: 45385; 99152; 99153; C1773; J2250; J3010; J7040; Z7512; 45380; A4620

== ENCOUNTER 2021-12-01 14:43 | Emergency (ER) | payer MEDICAID ==
[~2021-12-01] VITALS: Ht 172.7 cm; Wt 199.0 kg
[~2021-12-01 14:43] MED LIST changes: +ACYC-126 PO; -APIX5TAB3 PO; +BROM2.5T18 PO; -CARCD120C PO; -CYCL-394 PO; +FAMO20TA8 PO; +FURO-150 PO; -LANS15CA18 PO; +OMEP40CA21 PO; +POTA10CA44 PO; +SOTA120T PO
[2021-12-01] MEDS ORDERED: morphine 4 MG/ML inj SYRINge IM ONE (15:50)
[2021-12-01 16:43] VITALS: BP 117/81
== END 2021-12-01 16:43 | disposition home or self-care (01) ==
LOC: ER 14:44
DX: R10.12 Left upper quadrant pain (principal); R05.9 Cough, unspecified; E78.00 Pure hypercholesterolemia, unspecified; I10 Essential (primary) hypertension; E11.42 Type 2 diabetes mellitus with diabetic polyneuropathy; I25.2 Old myocardial infarction; J45.909 Unspecified asthma, uncomplicated; M19.90 Unspecified osteoarthritis, unspecified site; G89.29 Other chronic pain; Z90.49 Acquired absence of other specified parts of digestive tract; Z90.89 Acquired absence of other organs; Z90.710 Acquired absence of both cervix and uterus; Z88.8 Allergy status to other drugs, medicaments and biological substances; Z88.1 Allergy status to other antibiotic agents; Z79.82 Long term (current) use of aspirin; Z79.4 Long term (current) use of insulin; Z79.899 Other long term (current) drug therapy
CPT/HCPCS: 71045; 96372; 99283; J2270